=== PATIENT | male | born 1970 | race Caucasian/White ===

== ENCOUNTER 2020-02-08 02:32 | Emergency (ER) | payer OTHER ==
[~2020-02-08] VITALS: Ht 171.4 cm; Wt 110.0 kg
[2020-02-08] MEDS ORDERED: IV NORMAL SALINE 1,000ML 1,000 ML IV ONE (03:00)
--- NOTE | 2020-02-08 03:06 | PHYS DOC ---
General Adult EDM: Chief Complaint: SYNCOPE HPI: HPI: 49-year-old male presents with syncopal episode and fall. He was lying in bed having flatulence. It bothered his so he got out of bed to go get a deodarizing spray and that is the last thing he remembers. The patient was laughing heartily as he started walking across the room. He woke up to his calling his name and trying to wake him up. The patient had passed out and fell and hit his head on the floor. He has an abrasion and skin tear on his forehead. The patient tells me that he has had episodes where he is laughing so hard that he almost passes out, but is never actually had syncope. He recently had a cardiac work-up that was reported to be negative. He denies drinking alcohol or doing drugs. He has a mild headache, but no other significant complaints or injuries. Review of Systems: Review of Systems: Constitutional: Denies fever or chills Eyes: Denies change in visual acuity HENT: Denies nasal congestion or sore throat Respiratory: Denies cough or shortness of breath Cardiovascular: Denies chest pain or edema GI: Denies abdominal pain, nausea, vomiting, bloody stools or diarrhea : Denies dysuria Musculoskeletal: Denies back pain or joint pain Integument: Abrasion, skin tear Neurologic: Syncope, headache Endocrine: Denies polyuria or polydipsia Lymphatic: Denies swollen glands Psychiatric: Denies depression or anxiety Heart Score: Risk Factors: Risk Factors: DM, Current or recent (<one month) smoker, HTN, HLP, family history of CAD, obesity. Risk Scores: Score 0 - 3: 2.5% MACE over next 6 weeks - Discharge Home Score 4 - 6: 20.3% MACE over next 6 weeks - Admit for Clinical Observation Score 7 - 10: 72.7% MACE over next 6 weeks - Early Invasive Strategies Current Medications: Current Meds: Current Medications Medications (Trade) Dose Ordered Sig/Neto Start Time Stop Time Status Last Admin Dose Admin Sodium Chloride 1,000 ml @ 1,000 mls/hr 1X ONCE 02/08/20 03:00 02/08/20 03:59 UNV Physical Exam: PE: Constitutional: Well developed, well nourished, no acute distress, non-toxic appearance. [] HENT: Normocephalic, atraumatic, bilateral external ears normal, oropharynx cuca st, no oral exudates, nose normal. [] Eyes: PERRLA, EOMI, conjunctiva normal, no discharge. [] Neck: Normal range of motion, no tenderness, supple, no stridor. [] Cardiovascular: Heart rate regular rhythm, no murmur [] Lungs & Thorax: Bilateral breath sounds clear to auscultation [] Abdomen: Bowel sounds normal, soft, no tenderness, no masses, no pulsatile masses. [] Skin: Abrasion of the forehead with central 1 cm skin tear, bleeding controlled. [] Back: No tenderness, no CVA tenderness. [] Extremities: No tenderness, no cyanosis, no clubbing, ROM intact, no edema. [] Neurologic: Alert and oriented X 3, normal motor function, normal sensory function, no focal deficits noted. [] Psychologic: Affect normal, judgement normal, mood normal. [] EKG: EKG: Sinus rhythm, rate 59, normal axis, no ST elevations or depressions. [] Radiology/Procedures: Radiology/Procedures: [] Impressions: AP chest x-ray HISTORY: Syncope. Fell and hit head. FINDINGS: Heart size normal. Mediastinal silhouette is normal. No pneumothorax, pulmonary opacities or pleural effusions. Bones are unremarkable. IMPRESSION: No acute process. Electronically signed by: Merrill Hansen MD (02/08/2020 3:51 AM) [facility] DICTATED AND SIGNED BY: MERRILL HANSEN MD DATE: 02/08/20350 CC: RONA REYNA DO; BENITO DIAZ DO ~ CT head without contrast PQRS statement: CT scans at this facility use dose reduction including either automated exposure control, iterative reconstructions, and /or weight based radiation dosing via mA and kV modification when appropriate to reduce radiation dose to as low as reasonably achievable. HISTORY: Syncope, fell and hit head. FINDINGS: No intracranial hemorrhage, mass, hydrocephalus, extra-axial fluid collections or infarction. Orbits, mastoids and bones are unremarkable. IMPRESSION: Normal exam. Electronically signed by: Merrill Hansen MD (02/08/2020 3:50 AM) [facility] DICTATED AND SIGNED BY: MERRILL HANSEN MD DATE: 02/08/20349 CC: RONA REYNA DO; BENITO DIAZ DO ~ Course & Med Decision Making: Course & Med Decision Making Pertinent Labs and Imaging studies reviewed. (See chart for details) The patient's chest x-ray is unremarkable. His head CT is negative for acute findings. His labs are unremarkable except for a slightly elevated creatinine. I have given the patient a liter of normal saline. It sounds like a vasovagal syncope. The patient had a short syncopal event in the emergency room after getting his IV started. I suspect he has had sensitivity most of his life, is just never gotten to a point of actually passing out before. A recent full cardiac work-up that was negative is reassuring. The patient does not meet admission criteria. He is stable for discharge at this time. [] Dragon Disclaimer: Dragon Disclaimer: This electronic medical record was generated, in whole or in part, using a voice recognition dictation system. Departure Departure: Impression: Primary Impression: Vasovagal syncope Disposition: HOME/RESIDENCE PRIOR TO ADM Condition: STABLE Referrals: BENIOT DIAZ DO (PCP) Patient Instructions: Syncope, [id number] RONA REYNA DO Feb 08, 2020 03:06
[2020-02-08 03:41] LABS: BASO % 1 % (0-3); EOS # 0.1 x10^3/uL (0.0-0.7); EOS % 1 % (0-3); HEMOGLOBIN 14.6 g/dL (13.0-17.5); LYMPH # 3.5 x10^3/uL (1.0-4.8); LYMPH % 42 % (24-48); MEAN CORPUSCULAR HEMOGLOBIN 28 pg (25-35); MEAN CORPUSCULAR HGB CONC 33 g/dL (31-37); MEAN CORPUSCULAR VOLUME 84 fL (79-100); MONO # 0.5 x10^3/uL (0.0-1.1); MONO % 7 % (0-9); NEUT # 4.1 x10^3uL (1.8-7.7); NEUT % 50 % (31-73); PLATELET COUNT 244 x10^3/uL (140-400); RED BLOOD COUNT 5.26 x10^6/uL (4.30-5.70); RED CELL DISTRIBUTION WIDTH 13.2 % (11.5-14.5); WHITE BLOOD COUNT 8.3 x10^3/uL (4.0-11.0)
[2020-02-08 03:51] LABS: CALCIUM 9.1 mg/dL (8.5-10.1); CREATININE 1.4 mg/dL (0.7-1.3); GFR 54.3; POTASSIUM 3.4 mmol/L (3.5-5.1)
--- NOTE | 2020-02-08 03:53 | RAD ---
CT head without contrast PQRS statement: CT scans at this facility use dose reduction including either automated exposure control, iterative reconstructions, and /or weight based radiation dosing via mA and kV modification when appropriate to reduce radiation dose to as low as reasonably achievable. HISTORY: Syncope, fell and hit head. FINDINGS: No intracranial hemorrhage, mass, hydrocephalus, extra-axial fluid collections or infarction. Orbits, mastoids and bones are unremarkable. IMPRESSION: Normal exam. Electronically signed by: Telly Hansen MD (02/08/2020 3:50 AM) [facility]
--- NOTE | 2020-02-08 03:54 | RAD ---
AP chest x-ray HISTORY: Syncope. Fell and hit head. FINDINGS: Heart size normal. Mediastinal silhouette is normal. No pneumothorax, pulmonary opacities or pleural effusions. Bones are unremarkable. IMPRESSION: No acute process. Electronically signed by: Telly Hnasen MD (02/08/2020 3:51 AM) [facility]
[2020-02-08 04:01] LABS: ALBUMIN 3.8 g/dL (3.4-5.0); TOTAL BILIRUBIN 0.1 mg/dL (0.2-1.0); TOTAL PROTEIN 7.8 g/dL (6.4-8.2)
[2020-02-08 04:30] VITALS: BP 119/70
[2020-02-08 04:37] LABS: BILIRUBIN,URINE NEG (NEG); CLARITY,URINE CLEAR; COLOR,URINE YELLOW; GLUCOSE,URINE NEG (NEG); NITRITE,URINE NEG (NEG); UROBILINOGEN,URINE 0.2 mg/dL (0.2 mg/dL)
[2020-02-08 04:38] LABS: BACTERIA,URINE 0 /HPF (0-FEW); BARBITURATES NEG (NEG); BENZODIAZEPINES NEG (NEG); CANNABINOIDS NEG (NEG); COCAINE NEG (NEG); METHADONE NEG (NEG); OPIATES NEG (NEG); PHENCYCLIDINE NEG (NEG); RBC,URINE 0 /HPF (0-2); SQUAMOUS EPITHELIAL CELL,UR OCC /LPF; WBC,URINE OCC /HPF (0-4)
[2020-02-08 04:39] LABS: AMPHETAMINE/METHAMPHETAMINE NEG (NEG)
--- NOTE | 2020-02-08 05:09 | EKG ---
[facility] ED [facility] [place] [id number] Test Date: 2020-02-08 Test Time: 03:00:35 Pat Name: RITCHIE KRAMER Department: Room: Gender: M [employer]: : 1970 Requested By: RONA REYNA Order Number: [id number] Reading MD: Measurements Intervals [place] Rate: 59 P: 18 [place]: 192 QRS: 4 QRSD: 88 T: -14 QT: 410 QTc: 410 Interpretive Statements SINUS RHYTHM T ABNORMALITY IN INFERIOR LEADS ABNORMAL ECG RI6.02 No previous ECG available for comparison
== END 2020-02-08 04:34 | disposition home or self-care (01) ==
LOC: ER 02:32
DX: S00.81XA Abrasion of other part of head, initial encounter (principal); R55 Syncope and collapse; R51.9 Headache, unspecified; W18.39XA Other fall on same level, initial encounter; Y93.89 Activity, other specified; Y92.89 Other specified places as the place of occurrence of the external cause; Y99.8 Other external cause status
CPT/HCPCS: 36415; 70450; 71045; 80053; 80307; 81001; 84484; 85025; 93005; 96360; 99285; J7030

== ENCOUNTER → 2021-05-09 | Day surgery (SDC) | payer OTHER ==
[~2021-05-09] MED LIST: BUPR150T11 PO; METO-239 PO; SERT100T PO; VALS160T3 PO; ZOLP3.5T4 SL
[2021-05-09 09:42] VITALS: BP 177/96
== END | disposition home or self-care (01) ==
LOC: SURG 09:34
PROVIDERS: ATTEND Anesthesiology
DX: M54.2 Cervicalgia (principal); M47.812 Spondylosis without myelopathy or radiculopathy, cervical region; M79.18 Myalgia, other site; I10 Essential (primary) hypertension; G47.30 Sleep apnea, unspecified; K21.9 Gastro-esophageal reflux disease without esophagitis; F32.9 Major depressive disorder, single episode, unspecified; Z79.899 Other long term (current) drug therapy; Z98.890 Other specified postprocedural states
CPT/HCPCS: 99204; G0463